=== PATIENT | female | born 1960 | race Caucasian/White ===

== ENCOUNTER → 2016-10-20 | Outpatient (CLI) | payer MEDICARE ==
[~2016-10-20] MED LIST: AZAT50TA; CALC-445; CIPR750T23; CITA10TA12; CYAN100015 SL; CYCL5TAB PO; FLC1T; FLUT16SP NS; FURO-125; GLUC1TAB29 PO; HYOS0.1216 PO; IRON1TAB84 PO; KCL20TCR; LOPE2TAB17 PO; MAGN400T26 PO; METR45CR2; NFLOSA25TA PO; OMEP20TA; RIFA550T3; RIVA20TA PO; SIME40DR PO; SPIR50TA; THIA50TA PO; VIT1TABL57; WARF10TA
[2016-10-20 09:09] LABS: BASOPHILS % (AUTO) 0 % (0-2); EOSINOPHILS # (AUTO) 0.2 10^3uL; EOSINOPHILS % (AUTO) 4 % (0-4); MEAN CORPUSCULAR HEMOGLOBIN 37.1 PG (26.0-34.0); MEAN CORPUSCULAR HGB CONC 34.6 g/dL (31.0-37.0); MEAN CORPUSCULAR VOLUME 107 FL (80-100); MEAN PLATELET VOLUME 11.3 FL (6.0-9.5); MONOCYTES # (AUTO) 0.6 X10^3; MONOCYTES % (AUTO) 10 % (3-11); NEUTROPHILS # (AUTO) 4.2 X10^3; NEUTROPHILS % (AUTO) 69 % (51-67); PLATELET COUNT 119 10^3uL (150-450); WHITE BLOOD COUNT 6.07 10^3uL (4.0-11.0)
[2016-10-20 09:20] LABS: ALBUMIN 3.5 g/dL (3.4-5.0); ANION GAP 11.6 MEQ/L (3-15); CALCULATED IONIZED CALCIUM 4.1 mg/dL (3.8-4.6); TOTAL PROTEIN 6.8 g/dL (6.4-8.5)
== END ==
LOC: LAB 08:43
PROVIDERS: ATTEND Internal Medicine
DX: K75.4 Autoimmune hepatitis (principal); Z95.828 Presence of other vascular implants and grafts
CPT/HCPCS: 36415; 80053; 85025; 85610

== ENCOUNTER → 2016-10-20 | Outpatient (CLI) | payer MEDICARE ==
--- NOTE | 2016-10-20 09:26 | Diagnostic Imaging Report ---
Indication: Cough PA and lateral chest Heart size and pulmonary vascularity are normal. Lungs are clear. There are no effusions or pneumothoraces. Impression: Negative chest Dictated by: Dictated on workstation # [id number]
== END ==
LOC: RAD 08:44
PROVIDERS: ATTEND Family Medicine
DX: R05 Cough (principal)
CPT/HCPCS: 71020

== ENCOUNTER → 2016-12-21 | Outpatient (CLI) | payer MEDICARE ==
[2016-12-21 13:14] LABS: MEAN CORPUSCULAR HGB CONC 34.8 g/dL (31.0-37.0); WHITE BLOOD COUNT 6.22 10^3uL (4.0-11.0)
[2016-12-21 13:15] LABS: BASOPHILS % (AUTO) 0 % (0-2); EOSINOPHILS # (AUTO) 0.2 10^3uL; EOSINOPHILS % (AUTO) 4 % (0-4); MEAN CORPUSCULAR VOLUME 106 FL (80-100); MEAN PLATELET VOLUME 11.1 FL (6.0-9.5); MONOCYTES # (AUTO) 0.9 X10^3; MONOCYTES % (AUTO) 15 % (3-11); NEUTROPHILS # (AUTO) 3.1 X10^3; NEUTROPHILS % (AUTO) 50 % (51-67); PLATELET COUNT 135 10^3uL (150-450)
[2016-12-21 13:37] LABS: ALBUMIN 3.3 g/dL (3.4-5.0); ANION GAP 11.4 MEQ/L (3-15); TOTAL PROTEIN 6.6 g/dL (6.4-8.5)
== END ==
LOC: LAB 12:55
PROVIDERS: ATTEND Internal Medicine
DX: K75.4 Autoimmune hepatitis (principal); Z95.828 Presence of other vascular implants and grafts
CPT/HCPCS: 36415; 80053; 82105; 85025; 85610

== ENCOUNTER → 2017-03-01 | Outpatient (CLI) | payer MEDICARE ==
[2017-03-01 13:54] LABS: MEAN PLATELET VOLUME 11.3 FL (6.0-9.5); WHITE BLOOD COUNT 4.96 10^3uL (4.0-11.0)
[2017-03-01 13:55] LABS: MEAN CORPUSCULAR HEMOGLOBIN 38.2 PG (26.0-34.0)
== END ==
LOC: LAB 13:44
PROVIDERS: ATTEND Internal Medicine
DX: K75.4 Autoimmune hepatitis (principal); K74.69 Other cirrhosis of liver
CPT/HCPCS: 36415; 85027